=== PATIENT | male | born 1985 | race Two or more races ===

== ENCOUNTER → 2024-11-03 | Outpatient (CLI) | payer MEDICAID, SELFPAY ==
--- NOTE | 2024-11-03 16:15 | XR_ITS ---
Examination: MRI of brain without intravenous contrast. MRI brain with intravenous contrast. Date and time of exam:November 03, 2024, 7007 hours, comparison October 11, 2022. INDICATIONS: Diagnosis unilateral schwannoma, brain tumor removal 2014, hearing loss beginning 2012 Technique: Multiple axial and sagittal images of the brain to been obtained. Siemens high-resolution 1.52 Cheri short bore scanner utilized. Sagittal sections, T1 weighted images, TR 500, TE 14, are performed. Axial sections proton-density and T2-weighted images have been obtained. Inversion recovery axial images, TR 9260, TE 111, TR 2500. Diffusion weighted images, axial sections, TR 4800, TE 128, B value 1000. Axial sections, ADC map, TR 4800, TE 128. Axial and coronal images were also obtained post 20 cc gadolinium administered intravenously. Findings:: Enlargement of the sella turcica is not present. The optic chiasm and infundibular stalk are not remarkable. There is no localized enlargement of the medulla or vanda. Fourth ventricle and cerebellar tonsils appear normal in position. No subacute area of hemorrhage density is seen. Fourth ventricle is midline. Mass in the cerebellopontine angle region is not evident. 7th and 8th nerve complexes exhibit symmetry Globes are symmetrical Orbital musculature including medial lateral rectus muscles do not exhibit abnormality Increased white matter signal is evident, partial resection right cerebellar hemisphere Effacement of the cortical sulcal markings is not identified. Mass effect upon the ventricular system is not identified. 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
== END | disposition home or self-care (01) ==
LOC: SMRI 16:04
PROVIDERS: PCP Family Medicine; Referring Provider Physician Assistant; Visit Provider Physician Assistant
DX: D33.3 Benign neoplasm of cranial nerves (principal)
CPT/HCPCS: 70553; A9579

== ENCOUNTER 2025-03-28 04:15 | Emergency (ER) | payer MEDICAID, SELFPAY ==
--- NOTE | 2025-03-28 04:25 | PD.EDNEURO ---
Neuro Symptoms Deficit-RME/HPI General Chief Complaint: Neuro Symptoms/Deficit Stated Complaint: LEFT ARM NUMBNESS X20 MINUTES Time Seen by Provider: 03/28/25 04:25 Arrival date/time: 03/28/25 04:15 RME / HPI RME / HPI Narrative: DR. ESPINOZA MAIN ED EVALUATION: Patient with Hx of schwanoma with previous crianiotomy in 2016 with right-sided facial and UE/LE post-surgical deficit following near complete excision. Reports having awoke with paresthesia to the LUE in stalking glove distribution, and after attempting to recline a second time, noted left lower extremity paresthesias. No weakness, dysarthria or disequilibrium. Blood pressure at home was 190/110. Patient subsequently presented to ED for evaluation. Upon arrival, patient reports overall improvement with residual dorsum of left hand. PMH: Schwannoma PSH: Craniotomy Allergies: NKDA Social: Negative Related Data Previous Rx's ?Medication ?Instructions ?Recorded docusate sodium 50 mg capsule 50 mg PO QDAY #30 caps 09/22/21 (Colace Clear) hydrocortisone 2.5 % topical cream [address] QDAY PRN hemorrhoids 09/22/21 with perineal applicator #30 grams (Anusol-HC) psyllium husk 3 gram/5.4 gram oral 1 tbsp PO QDAY #284 grams 09/22/21 powder Allergies Allergy/AdvReac Type Severity Reaction Status Date / Time No Known Allergies Allergy Verified 09/25/21 10:16 Review of Systems Review of Systems Systems Reviewed: All systems reviewed, normal except as documented Past Medical History Past Medical History NEUROLOGIC: Positive Brain Tumor (2015) Surgical History SURGICAL: Positive Tonsillectomy and Neurologic Surgery (Brain tumor resection x 2 (2015,2016)) ED Exam Narrative Physical exam: GEN. APPEARANCE: The patient is alert awake oriented X-3 under no distress, lying down comfortably, does not look ill/toxic. Patient has good eye contact. Patient is cooperative. VITALS: All vitals were reviewed and the pulse ox is 97%, which is normal according to my interpretation HEENT: Atraumatic and nontender. Pupils are equal and reactive. Oral mucosa is moist. Obvious right facial droop, nystagmus in horizontal plane, no vertical plane NECK: Supple, nontender, no meningismus, no JVD. There is no thyromegaly and no lymphadenopathy. CHEST: Nontender on palpation no deformity and no crepitus. CARDIOVASCULAR: Heart regular rhythm, no murmur or gallop rub or extra beats. LUNGS: Clear to auscultation bilaterally with symmetrical chest rise. No laboring tachypnea or wheezing. No intercostal subcostal retraction. No rales and no rhonchi. ABDOMEN: Soft, flat, nontender to palpation, no guarding or rebound tenderness. There are no abnormal masses palpated. No pulsatile masses or bruits. Active and normal bowel sounds. EXTREMITIES: Normal inspection and palpation. No edema. No cyanosis. Patient is able to move all 4 extremities well SKIN: Warm and dry, no rashes noted. MUSCULOSKELETAL: No lumbar or midline bony tenderness. There is no CVA tenderness. No paraspinal muscle spasm or tenderness. NEURO: Cranial nerves II through XII grossly intact. There are no focal neurologic deficits noted. GCS is 15 PSYCHIATRIC: Patient is in normal mood and affect, cooperative. LYMPHATICS: No major lymphadenopathy noted. Course Quality Measures none Orders Category Date Time Status Bedside Blood Glucose NOW Care 03/28/25 04:[address] Screening NOW Care 03/28/25 04:32 Active Tactical Air Control Party Manager NOW Care 03/28/25 04:30 Active Continuous Pulse Oximetry NOW Care 03/28/25 04:30 Active EKG (ED ONLY) *Do not use* NOW Care 03/28/25 04:30 Completed In and Out Catheter NEEDED Care 03/28/25 04:30 Active Insert IV NOW Care 03/28/25 04:30 Active NIH Stroke Scale now Care 03/28/25 04:30 Active NPO NOW Care 03/28/25 04:30 Active Neuro Check Q30MIN Care 03/28/25 04:30 Active Nurse Swallow Screen x1 Care 03/28/25 04:30 Active Consult to Neurology / Tele-Neurology Routine Cons 03/28/25 04:[address] angio carotid w head w Stat Exams 03/28/25 04:[address] head/brain wo con Stat Exams 03/28/25 04:31 Ordered EKG (ED Only) Stat Exams 03/28/25 04:30 Draft XR chest 1V portable Stat Exams 03/28/25 04:30 Taken CBC [CBC] Stat Lab 03/28/25 04:46 Completed CMP [Comprehensive Metabolic Panel] Stat Lab 03/28/25 04:46 Completed Drug Screen,Urine Stat Lab 03/28/25 04:30 Ordered Magnesium Stat Lab 03/28/25 04:46 Completed Partial Thromboplastin Time Stat Lab 03/28/25 04:46 Completed Prothrombin Time with INR Stat Lab 03/28/25 04:46 Completed Troponin I Stat Lab 03/28/25 04:46 Completed Urinalysis, C/S if Indicated Stat Lab 03/28/25 04:29 Ordered Urinalysis, C/S if Indicated Stat Lab 03/28/25 04:30 Ordered Labetalol* IV [Trandate* IV] Med 03/28/25 04:29 Active 10 mg IVP Q15M PRN Sodium Chloride 0.9% 1000 ml [Ns] 1,000 ml Med 03/28/25 04:30 Active IV Q10H Oxygen Delivery NOW RT 03/28/25 04:30 Active Vital Signs Vital signs: Vital Signs Temperature 98.5 F 03/28/25 04:26 Pulse Rate 92 03/28/25 04:26 Respiratory Rate 17 03/28/25 04:26 Blood Pressure 169/106 H 03/28/25 04:26 Pulse Oximetry (%) 97 03/28/25 04:26 Oxygen Delivery Method Room Air 03/28/25 04:26 Neuro Symptoms / Deficit MDM Narrative MDM Narrative:: Scribe Attestation: IGila am scribing for and in the presence of Dr. Munoz. Provider Notation: Although this document has been carefully reviewed, there may still be some phonetic and other typographical errors. These errors are purely grammatical due to imperfections in the software program and should not be construed in any way to compromise the substance of the patient's medical care during this visit. Patient with Hx of schwanoma with previous crianiotomy in 2016 with right-sided facial and UE/LE post-surgical deficit following near complete excision. Reports having awoke with paresthesia to the LUE in stalking glove distribution, and after attempting to recline a second time, noted left lower extremity paresthesias. No weakness, dysarthria or disequilibrium. Please see PE findings. Laboratory markers, including CBC and serum chemistries, demonstrated slight hemoconcentration with hemoglobin of 17, otherwise were unremarkable. Serum chemistries demonstrate normal renal function. Toxicology screen was negative. Patient's blood pressure improved upon arrival to ED with symptoms nearly completely resolved. Patient placed on monitoring tech and observed closely for several hours. Further inquiry indicated that patient had been previously diagnosed with HTN and had been intolerant to the medication. Will obtain CT and CTA of the head and neck vessels, and if unremarkable, will likely discharge to home and initiate antihypertensive therapy. Diagnosis at this time is consistent with accelerated hypertension. Patient data External records reviewed:: [facility] previous records (Reviewed prior ED records from 07/30/22. Patient was seen for Headache.) Clinical information provided by:: patient Social determinants that could affect healthcare access:: none Patient has the following chronic illnesses:: Schwannoma How is presenting disease/condition affected by chronic disease/condition?: exacerbated by Evaluation data The following diagnostics were reviewed and interpreted by me:: lab results, radiology exam(s) and EKG tracing(s) (EKG shows normal sinus rhythm at 89, normal axis, no ectopy, no signs of acute ischemia, per my interpretation.) Lab and/or radiology exams considered but not ordered:: None Interpretation Summary: RADIOLOGY Chest X-Ray: Pending official radiology report. Head/Brain CT: Pending official radiology report. CTA: Pending official radiology report. Medications / Prescriptions Medications or Prescriptions considered but not ordered:: None Medication administrations:: Medication Administration History Sodium Chloride (Ns) 1,000 mls @ 100 mls/hr IV Q10H CULLEN Stop: 04/27/25 04:29 Labetalol HCl (Labetalol Inj 5 Mg/Ml Vial 4 Ml) 10 mg IVP Q15M PRN PRN Reason: hypertension See above if any Consultations Consultation(s) initiated? (list below): No Diagnosis Neuro Differential Diagnosis: convulsions, delirium, subarachnoid hemorrhage, peripheral neuropathy, cerebrovascular accident, multiple sclerosis and transient cerebral ischemia Most likely diagnosis given after review of the tests above:: Accelerated hypertension Admission Indicated Admission indicated?: not indicated Explain why admission is indicated or not indicated:: Patient does not meet admission criteria Admission Request Was there a request for admission?: No Disposition Plan Disposition Plan: Discharge Discharge Attestation Discharge Attestation: The patient and all family members were given an opportunity to ask questions and understood the discharge instructions. Discharge instructions specifically effects, indications for sooner follow up or return to the emergency department, and the expected course of current diagnosis. Patient condition: Stable Discharge Plan Plan Patient Disposition: HOME (Self Care) Prescriptions/Referrals Prescriptions/Med Rec: No Action hydrocortisone [Anusol-HC] 2.5 % cream with perineal applicator [address] QDAY PRN (Reason: hemorrhoids) Qty: 30 0RF Colace Clear 50 mg capsule 50 mg PO QDAY Qty: 30 0RF psyllium husk 3 gram/5.4 gram powder 1 tbsp PO QDAY Qty: 284 0RF Rx Instructions: mix into at least 8 oz of water or juice before administering Problem List Clinical Impression: Accelerated hypertension Patient/Caregiver Discharge Instructions Print Language: Czech Stand Alone Forms: Just[employer] Award Info., Patient Portal Info Letter
[2025-03-28 04:26] VITALS: BP 169/106; PULSE 92; RESP 17; TEMP 36.9; O2SAT 97
--- NOTE | 2025-03-28 04:27 | PC.NURSE ---
DR. Joanna SINGER ASSESSED PATIENT AND STATES NOT A STROKE ALERT.
[2025-03-28 04:30] VITALS: BP 152/89
--- NOTE | 2025-03-28 04:30 | EKG_ITS ---
[facility] Test Date: 2025-03-28 Pat Name: JOHNNY VILLALPANDO Department: Room: - Gender: Male [employer]: : 1985 Requested By: Garth Vickers Order Number: [id number] Reading MD: Garth Vickers Measurements Intervals [place] Rate: 89 P: 28 PA: 184 QRS: 38 QRSD: 108 T: 14 QT: 336 QTc: 409 Interpretive Statements SINUS RHYTHM Compared to ECG 01/01/2018 12:42:29 Intraventricular conduction delay no longer present /store/S0/[id number].pdf
--- NOTE | 2025-03-28 04:30 | XR_ITS ---
EXAMINATION: AP chest single view TECHNIQUE: AP portable upright chest single view Date and time: March 28, 2025, 0501 hours INDICATIONS: Shortness of breath today. FINDINGS: Normal heart size Lungs are clear. Intact osseous structures IMPRESSION: No active disease
--- NOTE | 2025-03-28 04:31 | XR_ITS ---
Examination: CT brain head without contrast. 2-D sagittal coronal reconstructions Date and time of exam: March 28, 2025, 0555 hours INDICATIONS: High blood pressure, headache, numbness and paresthesias in the left arm beginning 1 hour ago COMPARISON: July 30, 2022 CTDI: vol (mGy): 56.70 DLP: (mGycm): 1224 Technique: Multiple CT axial sections of the brain have been obtained, 5 mm slice thickness. Contrast has not been administered. 2-D sagittal, coronal reconstructions have been obtained Low dose protocols were performed. One or more of the following dose reduction techniques were used; automated exposure control, adjustment of the mA and/or KV according to patient size, use of iterative reconstruction technique. Findings: No significant ventricular enlargement. Intra-axial or extra-axial hemorrhage density is not seen. No mass effect or midline shift Basal cisterns are not remarkable. Fourth ventricle is midline. 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
--- NOTE | 2025-03-28 04:31 | XR_ITS ---
Examination: CTA carotids with intravenous contrast CTA brain, head with intravenous contrast. 2-D sagittal, coronal reconstructions. 3-D reconstructions. Exam date and time: March 28, 2025, 0555 hours INDICATIONS: Left arm numbness paresthesias high blood pressure today CTDI: vol (mGy) 79.49 DLP: (mGycm) 718 Technique: Multiple CTA axial brain, head carotid images post intravenous contrast injection 75 cc, [id number]. 2-D sagittal, coronal reconstructions. 3-D reconstructions, 3-D post processing including vascular maximum intensity projection images. Low dose protocols were performed. One or more of the following dose reduction techniques were used; automated exposure control, adjustment of the mA and/or KV according to patient size, use of iterative reconstruction technique. Findings: No common carotid carotid bifurcation or internal carotid artery significant stenoses Codominant vertebral arteries in the neck with no critical stenoses Intracranial vertebral arteries basilar artery posterior cerebral branches fill without large vessel occlusions Petrous juxtasellar supraclinoid portions internal carotid arteries intact M1 segments middle cerebral arteries middle cerebral artery trifurcation vessels and anterior cerebral arteries fill with no large vessel occlusions IMPRESSION: No significant neck arterial stenoses No cerebral large vessel arterial occlusions or thrombus Please see the brain MRI report November 03, 2024 consistent with 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
[2025-03-28 05:09] LABS: Basophils # (Auto) 0.0 Thou/mm3 (0.0-0.2); Basophils % (Auto) 0 % (0-2.5); Eosinophils # (Auto) 0.2 Thou/mm3 (0.0-0.5); Eosinophils % (Auto) 2 % (0-10); Hematocrit 50.9 % (41.0-53.0); Hemoglobin 17.2 g/dL (13.5-16.0); Immature Granulocytes Auto 0.03 Thou/mm3 (0.00-0.00); Lymphocytes # (Auto) 2.5 Thou/mm3 (1.0-4.8); Lymphocytes % (Auto) 27 % (10-50); Mean Corpuscular HGB Conc 33.8 g/dl (31.0-37.0); Mean Corpuscular Hemoglobin 29.9 pg (25.0-35.0); Mean Corpuscular Volume 89 fL (80-100); Monocytes # (Auto) 0.7 Thou/mm3 (0.0-0.8); Monocytes % (Auto) 8 % (0-12); Neutrophils # (Auto) 5.6 Thou/mm3 (1.8-7.7); Neutrophils % (Auto) 63 % (37-80); Nucleated Red Blood Cell # 0.00 Thou/mm3 (0.00-0.00); Nucleated Red Blood Cell % 0 /100 WBC (0); Platelet Count 247 Thou/mm3 (140-440); RDW Standard Deviation 40.5 fL (35.1-43.9); Red Blood Count 5.75 Miln/mm3 (4.50-5.90); White Blood Count 9.0 Thou/mm3 (3.8-10.6)
[2025-03-28 05:34] LABS: Alanine Aminotransferase 47 U/L (10-49); Albumin, Serum 5.0 gm/dL (3.5-5.0); Albumin/Globulin Ratio 1.6 (1.2-2.2); Alkaline Phosphatase 103 U/L (46-116); Anion Gap 11 (7-16); Aspartate Amino Transferase 30 U/L (0-34); BUN/Creatinine Ratio 9 Ratio (12-20); Bilirubin,Total 0.7 mg/dL (0.3-1.2); Blood Urea Nitrogen 11 mg/dL (9-23); Calcium 9.5 mg/dL (8.3-10.6); Calcium (Corrected) 9.5 mg/dL (8.5-10.1); Carbon Dioxide 28.9 mMol/L (20.0-31.0); Chloride 103 mMol/L (98-107); Creatinine (Component) 1.2 mg/dL (0.6-1.3); Globulin 3.2 gm/dL (2.3-3.5); Glucose 114 mg/dL (74-106); Magnesium 1.8 mg/dL (1.6-2.6); Osmolality,Calculated 285 (275-295); Potassium 3.7 mMol/L (3.4-5.1); Sodium 143 mMol/L (136-145); Total Protein 8.2 gm/dL (5.7-8.2); Troponin I < 0.020 ng/mL (0.0-0.045); eGFR > 60 See Note
[2025-03-28 05:36] LABS: INR 1.0 (0.9-1.3); Partial Thromboplastin Time 28.7 Seconds (22.0-36.0); Prothrombin Time 10.9 Seconds (9.0-12.2)
[2025-03-28 05:38] VITALS: BMI 38.3
--- NOTE | 2025-03-28 05:45 | PC.NURSE ---
Pt has known history of right sided facial droop due to Hx of brain tumor and brain surgery, swallows perfect with no deficit
[2025-03-28 05:52] VITALS: BP 145/91
[2025-03-28 06:10] VITALS: BP 148/90; PULSE 84; RESP 18; TEMP 37.1; O2SAT 96
[2025-03-28] MEDS: SODIUM CHLORIDE 0.9% 1000 ML 1,000 ML 100 ML IV (06:23)
[2025-03-28 06:27] VITALS: BP 168/99; PULSE 92
[2025-03-28 06:44] VITALS: BP 148/92; PULSE 89; RESP 20; TEMP 36.6; O2SAT 99
== END 2025-03-28 06:47 | disposition home or self-care (01) ==
LOC: SERX 06:15
PROVIDERS: Emergency Provider Emergency Medicine; PCP Family Medicine
DX: I10 Essential (primary) hypertension (principal); R51.9 Headache, unspecified; R20.0 Anesthesia of skin; R20.2 Paresthesia of skin; R06.02 Shortness of breath
CPT/HCPCS: 36415; 70450; 70496; 70498; 71045; 80053; 80307; 81001; 83735; 84484; 85025; 85610; 85730; 93005; 99284; A4649; J7030; Q9967; A9270